=== PATIENT | male | born 1985 | race African-American/Black ===

== ENCOUNTER 2024-03-11 18:15 | Emergency (ER) | payer OTHER ==
[2024-03-11] MEDS ORDERED: CEPHALEXIN 250 MG CAP ONE (19:15)
--- NOTE | 2024-03-11 20:32 | EDPHYS ---
Physician Documentation [facility] Name: Heidi Anderson Age: 39 yrs Sex: Male : 1985 Arrival Date: 03/11/2024 Time: 18:15 Bed 12 Private MD: ED Physician Rick Soto HPI: 03/11 19:11 This 39 yrs old Black Male presents to ER via [employer] with complaints of Leg ec2 Pain. 19:11 Patient arrives today for evaluation of leg pain. Patient reports that he has had ec2 longstanding issues in the left lower extremity. States that he has chronic skin changes, states that he has a wound and has noted drainage. Reports no fevers or chills, no nausea or vomiting.. Historical: - Allergies: 18:23 No Known Allergies; kc6 - PMHx: 18:23 None; kc6 - PSHx: 18:23 left leg injury; kc6 - Immunization history:: Adult Immunizations up to date. - Infectious Disease History:: Denies. - Social history:: Smoking status: Patient denies any tobacco usage or history of. ROS: 19:11 Constitutional: as per hpi ec2 Exam: 19:11 Constitutional: GEN: NAD Head: atraumatic Eyes: EOMI Ears: External ears are ec2 normal. CV: regular rate LUNGS: no respiratory distress ABD: non-distended SKIN: Left anterior tibia with chronic skin changes, small wound present, no active drainage from the area, no significant erythema or warmth or discharge noted. MSK: no evidence of trauma NEURO: moves all extremities equally Vital Signs: 18:21 BP 131 / 74; Pulse 92; Resp 18 S; Temp 98.2(TE); Pulse Ox 98% on R/A; Weight 118.84 kg kc6 (R); Height 5 ft. 7 in. (R); Pain 8/10; 20:40 BP 117 / 79; Pulse 88; Resp 18; Pulse Ox 97% ; as6 18:21 Body Mass Index 41.03 (118.84 kg, 170.18 cm) kc6 18:21 Pain Scale: Adult kc6 MDM: 18:21 Patient medically screened. ec2 19:11 Data reviewed: vital signs. ED course: Patient arrives today for evaluation of left leg ec2 wound. Examination remarkable for skin findings as above. Will obtain radiograph of the leg given the patient has previous instrumentation. Will evaluate for bony pathology. Acute additional differential diagnosis includes cellulitis, chronic skin changes.. 20:31 ED course: Tib-fib x-ray independently reviewed and interpreted by me, shows no bony ec2 fracture. Will discharge home, prescribed patient Keflex and have patient follow-up outpatient. Return precautions given.. 03/11 19:06 Order name: Tib Fib Left XRAY ec2 Administered Medications: 19:17 Drug: Cephalexin PO 500 mg PO once Route: PO; as6 20:41 Follow up: Response: No adverse reaction as6 Disposition Summary: 03/11/24 20:32 Discharge Ordered Notes: Location: Home ec2 Condition: Stable ec2 Diagnosis - Changes in skin texture ec2 - Cellulitis of left lower limb ec2 Followup: ec2 - With: Private Physician - When: - Reason: Re-evaluation by your physician Discharge Instructions: - Discharge Summary Sheet ec2 Forms: - Medication Reconciliation Form ec2 - Antibiotic Education ec2 - Prescription Opioid Use ec2 - Patient Portal Instructions ec2 - Leadership Thank You Letter ec2 Prescriptions: - Cephalexin 500 mg Oral Capsule - take 1 capsule ORAL route every 8 hours for 10 days; 30 capsule; Refills: 0, ec2 Product Selection Permitted Signatures: Dispatcher [employer] Rob Santiago RN RN as6 Alisson Olmstead RN RN kc6 Rick Soto MD MD ec2
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
--- NOTE | 2024-03-11 20:44 | RAD REPORT ---
EXAM DESCRIPTION: RADTib Fib Left03/11/2024 7:25 pm CLINICAL HISTORY: Left leg pain status post injury FINDINGS: Plates and screws affix an old tibial fracture. No acute fracture seen Lucent and sclerotic areas within the tibia. This can be seen with chronic osteomyelitis and should b e correlated clinically
[2024-03-11 21:06] VITALS: BP 117/79; TEMP 98.2; O2SAT 97
== END 2024-03-11 20:41 | disposition home or self-care (01) ==
LOC: ER 18:15
DX: L03.116 Cellulitis of left lower limb (principal)
CPT/HCPCS: 99284